=== PATIENT | female | born 1990 | race Caucasian/White ===

== ENCOUNTER 2017-10-17 08:33 | Emergency (ER) | payer BC, MEDICAID, SELFPAY ==
[2017-10-17 08:34] VITALS: BP 124/71; PULSE 110; RESP 24; TEMP 37.1; O2SAT 97; BMI 34.8
--- NOTE | 2017-10-17 08:57 | ED.DCSUM_ITS ---
- ER Visit Summary Date of Service: 10/17/17 Chief Complaint: Flulike illness History of Present Illness: The patient is a 27 F with no past medical history presenting with fever, chills, myalgias, dry cough, rhinorrhea for the past 3 days. Yesterday she was nauseated and vomited approximately 10 times during the day. No diarrhea. No abdominal pain or urinary symptoms. There was a recent influenza outbreak at her child's school but she denies any other obvious exposures. She was able to keep some fluids down this morning but still feels somewhat nauseated and is concerned about dehydration. She denies neck pain or rash. Her cough has been nonproductive and she has no associated chest pain or shortness of breath. Physical Examination: He is mildly tachycardic and her mucous membranes are dry. Her vital signs are otherwise within normal limits. No fever here. Neck is supple without lymphadenopathy or meningeal signs. She is somewhat tachycardic but without murmur. Lungs are clear bilaterally. Abdomen is completely soft and nontender. She has no edema. No rash. No petechia. Neurologic and mental status examinations are normal. Test Results: [] Emergency Department Course and Treatment: [] Treatment Plan: [] Disposition: [] Impression: [] This note was generated with [employer] dictation software. It may contain incorrect words, spelling, and punctuation that were not noted in review of the chart prior to signing ED Disposition - Plan for ED Patient: Chief Complaint: Cough Instructions: ED Upper Resp Infec No Abx Tx, : Common Questions Prescriptions: Vit Calc,Iron,Folic [ Vitamins] 1 each PO DAILY #30 tablet Referrals: Ervin Marsh [Primary Care Provider] -
[2017-10-17] MEDS: 0.9% Normal Saline 1,000 ML 1000 ML IV (09:20)
[2017-10-17] MEDS: Ondansetron 4 MG/2 ML Vial IV (09:20)
[2017-10-17 09:35] LABS: Mucous, Urine 0 SEEN /hpf (<or=2+); Red Blood Cells-Urine 0 SEEN /hpf (0-5)
[2017-10-17 09:49] LABS: Color, Urine Yellow (Yellow); Glucose, Dipstick Normal (Normal); Ketone-Dipstick Negative (Negative); Leukocyte Esterase-Dipstick 25 /ul (Negative); Nitrite-Dipstick Negative (Negative); Occult Blood-Urine Negative /ul (Negative); Protein-Dipstick 15 mg/dl (Negative); Urine Bilirubin Dipstick Negative (Negative); Urine Clarity Clear (Clear); Urine Urobilinogen Normal (Normal)
[2017-10-17 09:50] LABS: Squamous Epithelial Cells - UA 10-25 SEEN /hpf (5-10)
[2017-10-17 09:51] LABS: Bacteria RARE /hpf (None Seen); White Blood Cells 0-5 SEEN /hpf (0-5)
[2017-10-17 09:58] LABS: Internal QC Validated? YES +Cl - CLEAR BKGD
[2017-10-17 09:59] LABS: Pregnancy, Urine Positive Negative
[2017-10-17] MEDS: Benzonatate 100 MG Capsule PO (10:21)
== END 2017-10-17 11:23 | disposition home or self-care (01) ==
PROVIDERS: Emergency Provider Emergency Medicine
DX: J06.9 Acute upper respiratory infection, unspecified (principal); Z33.1 Pregnant state, incidental; R11.2 Nausea with vomiting, unspecified; Z87.891 Personal history of nicotine dependence
CPT/HCPCS: 81001; 81025; 87804; 96361; 96374; 99285; J7030; A4216; J2405

== ENCOUNTER → 2017-11-05 18:18 | Outpatient (CLI) | payer BC, MEDICAID, SELFPAY ==
[2017-11-05 20:26] LABS: Chlamydia Trachomatis by PCR Negative (Negative); Neisserai gonorrhoeae by PCR Negative (Negative); Probe Check PASS; Sample Adequacy Control PASS; Specimen Processing Control PASS
[2017-11-11 12:07] LABS: HPV Reflexed? NOT INDICATED
== END ==
PROVIDERS: Visit Provider Obstetrics & Gynecology
DX: Z11.3 Encounter for screening for infections with a predominantly sexual mode of transmission (principal); Z32.01 Encounter for pregnancy test, result positive
CPT/HCPCS: 87491; 87591; 88175; G0145

== ENCOUNTER 2017-11-28 10:55 | Day surgery (SDC) | payer BC, MEDICAID, SELFPAY ==
[2017-11-28 11:22] VITALS: BP 132/70; PULSE 100; RESP 20; TEMP 37; O2SAT 100; BMI 33.5
--- NOTE | 2017-11-28 12:00 | POC_PTH ---
PATIENT: KIA LAIRD [place] [facility] [id number] AGE/SX: 27/F ROOM: RE11/28/[address]: Dr. Nico Mar MD : 1990 BED: DIS: 11/28/2017 SPEC #: [id number] RECD: 11/28/17 12:40 STATUS: DWAINE IRAIS #: [id number] WENDY: 11/28/17 12:[address]: Nico Mar DEPT: SURGICAL PATHOLOGY RECD BY: Dao Jackson ENTERED: 11/28/17 12:48 SP TYPE: PROD CONC OTHR DR: Ervin Marsh Tissues: Product of conception, NOS Procedures: Surgery Specimen Level IV HEADER OPERATION: Dilation and curettage, suction PRE-OP DIAGNOSIS: Incomplete TISSUE SUBMITTED: Products of conception MICROSCOPIC DIAGNOSIS Products of conception: [place]id[place], gestational endometrium and immature chorionic villi (products of conception). SJ:tish 12/01/17 MICROSCOPIC DESCRIPTION Slides are reviewed. GROSS DESCRIPTION Received in fixative is one container labeled with the patient's name and designated products of conception. The specimen consists of multiple irregular fragments of pink-red to hemorrhagic soft tissue that in aggregate measure 5.5 x 5.5 x 2 cm. tissue is not identified. Family Law Attorney tissue is submitted in two cassettes. / SJ:rg 11/28/17 TC:5 CPT: 17228
--- NOTE | 2017-11-28 12:04 | PCM.DC.D&C ---
Discharge Diet: No Restrictions Discharge Activity: Return to Normal Activity, May Drive, May not drive while taking narcotic pain medications., May Shower Return to work on:: 12/01/17 May shower in (days): 0 May resume sexual activity in: 3 weeks Call your doctor if your incision/area has: Sudden Increased Bleeding, Increased Pain/ Swelling, Foul Smelling Discharge Call your doctor if you observe: Fever of 101 or Higher, Inability to urinate, Inability to have a bowel movement, Using more than one pad per hour, Shortness of breath, Chest pain, Calf discomfort, Uncontrolled pain Cleanse incision/area with: Soap & Water Allergies/Adverse Reactions: Allergies No Known Allergies Allergy (Verified 04/07/14 16:09) Medications to take at Discharge Ibuprofen [Motrin] 800 mg PO TID PRN PRN #30 tab 11/28/17 Oxycodone [Oxyir] 5 mg PO Q4H PRN PRN 3 Days #10 tab 11/28/17 The following prescriptions were given: Oxycodone [Oxyir] 5 mg PO Q4H PRN PRN 3 Days #10 tab PRN Reason: Severe Pain (6-06/10) Ibuprofen [Motrin] 800 mg PO TID PRN PRN #30 tab PRN Reason: pain or cramping Primary Care Physician: Ervin Marsh [Primary Care Provider] - Please Follow Up With: Nico Mar MD When: one week Proposed Discharge Date: 11/28/17
[2017-11-28 12:09] LABS: Hematocrit 40.8 % (37-47); Hemoglobin 14.3 g/dl (12.0-15.0); Mean Corpuscular Hgb 31.6 pg (27.0-32.0); Mean Corpuscular Volume 90.3 fL (81-99); Platelet Count 274 K/mm3 (150-450); RBC Distribution Width SD 39.1 fl (35.1-43.9); Red Blood Count 4.52 M/mm3 (4.2-5.4); White Blood Count 11.4 K/mm3 (4.4-11.0)
--- NOTE | 2017-11-28 12:12 | OP.PCM_ITS ---
Problem List (1) Incomplete Status: Acute Report of Operation Date of Procedure: 11/28/17 Pre-Operative Diagnosis: Incomplete Spontaneous Post-Operative Diagnosis: Same Surgery/Procedure Performed:: Suction Dilation an Curretage Description of Surgical Findings:: Uterus was 8 weeks size. Cervix was naturally dilated to 8mm. Normal appearing cervix. electrical instrument maker: None Type of Anesthesia:: MAC Anesthesiologist: Nicky Coy Special Medications: none Specimen's removed: products of conception Drains: none Estimated Blood Loss (mL): 20cc Fluids Replaced: 400cc LR Description of Procedure: Rupinder was taken to the OR with IV running. She was given two grams of Cefotetan intravenously prior to start of surgery. Anesthesia was then introduced without complication. She was prepped and draped in the dorsal lithotomy position. The bladder was drained with a red rubber catheter. A weighted speculum was placed in the posterior vagina. The cervix was identified and grasped with a single toothed tenaculum. The cervix was already naturally dilated. An 8 mm suction curette was then placed into the uterine cavity. Suction was applied and products of conception obtained. A sharp curettage was then performed to a gritty texture throughout. The suction curette was reintroduced and the remaining products of conception obtained. All instruments were then removed. Sponge counts were correct. She was reversed from anesthesia without complication and taken to the recovery room in stable condition. Grafts/Implants Used: none - Complications none - Admit VTE Documentation VTE Present on Admission: No VTE Mechan Device Prophylaxis: SCD's VTE Pharm Prophylaxis ordered?: No
[2017-11-28 12:14] LABS: Scan Indicated on CBC? Y/N NO
[2017-11-28 12:16] LABS: Partial Thromboplast Time 29.2 Seconds (24.1-36.2)
[2017-11-28 12:35] VITALS: BP 125/70; BP 132/70; BP 138/65; PULSE 110; PULSE 111; RESP 16; TEMP 37.2; O2SAT 100; O2SAT 99
[2017-11-28 12:40] VITALS: BP 132/70; BP 139/75; PULSE 112; RESP 16; O2SAT 100
[2017-11-28 12:45] VITALS: BP 129/56; BP 132/70; PULSE 113; RESP 16; O2SAT 100
[2017-11-28 12:50] VITALS: BP 132/70; BP 139/75; PULSE 113; RESP 16; TEMP 37.3; O2SAT 99
[2017-11-28] MEDS: oxyCODONE 5 MG Tablet PO (13:13)
[2017-11-28 14:18] VITALS: BP 123/68; BP 132/70; PULSE 68; RESP 18; TEMP 37; O2SAT 98
== END 2017-11-28 14:20 | disposition home or self-care (01) ==
LOC: SDC 10:58 → AC 10:59
PROVIDERS: Anesthesiology; Visit Provider Obstetrics & Gynecology
PROC: (CPT 59812; principal; 2017-11-28 11:45)
DX: O03.4 Incomplete spontaneous abortion without complication (principal); Z87.891 Personal history of nicotine dependence
CPT/HCPCS: 59812; 36415; 85027; 85610; 85730; 86850; 86900; 88305; J7120; J2405

== ENCOUNTER → 2018-12-01 13:38 | Outpatient (CLI) | payer MEDICAID, SELFPAY ==
[2018-12-01 18:12] LABS: Chlamydia Trachomatis by PCR Negative (Negative); Neisserai gonorrhoeae by PCR Negative (Negative); Probe Check PASS; Sample Adequacy Control PASS; Specimen Processing Control PASS
[2018-12-05 14:36] LABS: HPV Reflexed? NOT INDICATED
== END ==
PROVIDERS: Visit Provider Obstetrics & Gynecology
DX: Z12.4 Encounter for screening for malignant neoplasm of cervix (principal)
CPT/HCPCS: 87491; 87591; 88175; G0145

== ENCOUNTER → 2018-12-30 | Outpatient (CLI) | payer MEDICAID, SELFPAY ==
[2018-12-30 18:04] LABS: hCG Titer Quant., Serum 1 mIU/mL (1-3)
== END | disposition home or self-care (01) ==
LOC: WOBLAB 14:56
PROVIDERS: Visit Provider Obstetrics & Gynecology
DX: O03.4 Incomplete spontaneous abortion without complication (principal)
CPT/HCPCS: 36415; 84702